=== PATIENT | male | born 1945 | race African-American/Black ===

== ENCOUNTER 2016-05-02 14:56 | Emergency (ER) | payer MEDICARE, OTHER ==
[~2016-05-02] VITALS: Ht 190.5 cm; Wt 95.3 kg
[2016-05-02] MEDS ORDERED: METFORMIN HCL500 M1 ORAL (15:09)
[2016-05-02] MEDS ORDERED: LOSARTAN-HCTZ1 EACH ORAL ×2 (15:09→15:35)
[2016-05-02 15:50] VITALS: BP 147/83
--- NOTE | 2016-05-02 18:27 | Emergency Room Report ---
History of Present Illness General Chief Complaint: General Complaint Source: Patient Present Illness HPI The patient is a 70-year-old male with a history of hypertension and DM II presenting with high blood pressure. The patient states that he has been taking his antihypertensive medication as directed. His blood pressure continues to be elevated. The patient states that he uses HCTZ/Lisinopril daily. The patient states that his according his blood pressure at the past week and states that it is usually 180/90 in the morning before taking his medication. Pt states the BP is usually 150/80 in the afternoons. The patient denies any other symptoms including chest pain or shortness of breath. Pt denies BARBA, dizziness, blurred vision, numbness/tingling, extremity swelling, abd pain, N, V Allergies: Coded Allergies: No Known Allergies (Unverified , 05/02/16) Patient History Past Medical History: see triage record Pertinent Family History: none Reviewed Nursing Documentation: PMH: Agreed, PSxH: Agreed Nursing Documentation-PMH Past Medical History: No History, Except For Hx Hypertension: Yes Hx Diabetes: Yes Review of Systems All Other Systems: negative except mentioned in HPI Physical Exam Vital Signs Date Time Temp Pulse Resp B/P Pulse Ox O2 Delivery O2 Flow Rate FiO2 05/02/16 15:04 98.6 84 16 155/82 100 Room Air Sp02 EP Interpretation: reviewed, normal General Appearance: no apparent distress, alert, GCS 15, non-toxic Head: normocephalic, atraumatic Eyes: bilateral eye PERRL, bilateral eye normal inspection ENT: hearing grossly normal, normal pharynx, no angioedema, normal voice Neck: full range of motion, supple/symm/no masses Respiratory: chest non-tender, lungs clear, normal breath sounds, no accessory muscle use, no wheezing, speaking full sentences Cardiovascular #1: regular rate, rhythm, no edema, no murmur Cardiovascular #2: 2+ carotid (R), 2+ carotid (L), 2+ radial (R), 2+ radial (L) , 2+ dorsalis pedis (R), 2+ dorsalis pedis (L) Genitourinary: normal inspection, no CVA tenderness Musculoskeletal: back normal, gait/station normal, normal range of motion, non- tender Neurologic: alert, oriented x3, responsive, motor strength/tone normal, sensory intact, normal gait, speech normal Psychiatric: judgement/insight normal, memory normal, mood/affect normal, no suicidal/homicidal ideation Skin: normal color, no rash, warm/dry, well hydrated Lymphatic: no adenopathy Medical Decision Making PA Attestation Dr. Dasilva is my supervising physician. Patient management was discussed with my supervising physician Diagnostic Impression: Primary Impression: Hypertension ER Course The patient is a 70-year-old male with a history of hypertension and DM II presenting with high blood pressure DDx: essential hypertension, htn urgency, hypotension PE: Pt is hypertensive. NAD HEENT exam unremarkable. Lungs clear to auscultation bilaterally. RRR. No murmur. Abdomen is soft and nontender. No edema The patient will be discharged home with a prescription for the same medication which he will take twice a day. Patient is advised he needs to follow up with primary doctor as soon as possible for possible change of hypertension medication. Patient will keep a blood pressure Journal. ER precautions given . Last Vital Signs Date Time Temp Pulse Resp B/P Pulse Ox O2 Delivery O2 Flow Rate FiO2 05/02/16 15:50 98.0 87 14 147/83 98 Room Air Status: improved Disposition: HOME, SELF-CARE Condition: Improved Scripts Losartan/Hydrochlorothiazide (LOSARTAN-HCTZ 100-12.5 MG TAB) 1 Each Tablet 1 TAB ORAL BID, #30 TAB Prov: AIDAN CRUZ 05/02/16 Patient Instructions: Hypertension Additional Instructions: I discussed my findings with the patient. All questions and concerns have been answered. Treatment and medication compliance have been addressed. I advised the patient that they need to follow up with PMD in 3-5 days. Return to ED if symptoms worsen, new symptoms arise, or if needed for any reason. Patient verbalized understanding of discharge instructions. Patient will keep a journal at home for blood pressure AIDAN CRUZ May 02, 2016 18:27
== END 2016-05-02 15:51 | disposition home or self-care (01) ==
LOC: EMR 15:24
DX: I10 Essential (primary) hypertension (principal); E11.9 Type 2 diabetes mellitus without complications
CPT/HCPCS: 82962; 99283

== ENCOUNTER 2016-05-13 14:13 | Inpatient (IN) | payer MEDICARE, OTHER ==
[~2016-05-13] VITALS: Ht 190.5 cm; Wt 93.4 kg
[~2016-05-13 14:13] MED LIST: LOSARTAN-HCTZ1 EACH ORAL; METFORMIN HCL500 M1 ORAL
[2016-05-13 15:20] VITALS: BP 121/71
[2016-05-13 16:02] LABS: BASOPHILS % (AUTO) 1.4 % (0.0-2.0); EOSINOPHILS % (AUTO) 0.5 % (0.0-3.0); LYMPHOCYTES % (AUTO) 24.8 % (20.0-45.0); MEAN CORPUSCULAR HEMOGLOBIN 31.7 PG (27.0-31.0); MEAN CORPUSCULAR HGB CONC 34.6 G/DL (32.0-36.0); MEAN CORPUSCULAR VOLUME 92 FL (80-99); MEAN PLATELET VOLUME 5.6 FL (6.5-10.1); MONOCYTES % (AUTO) 11.3 % (1.0-10.0); NEUTROPHILS % (AUTO) 61.9 % (45.0-75.0); PLATELET COUNT 264 K/UL (150-450); RED CELL DISTRIBUTION WIDTH 10.3 % (11.6-14.8); WHITE BLOOD COUNT 5.1 K/UL (4.8-10.8)
[2016-05-13 16:12] LABS: ALANINE AMINOTRANSFERASE 16 U/L (3-41); ALBUMIN/GLOBULIN RATIO 1.3 (1.0-2.7); ANION GAP 17 (5-15); ASPARTATE AMINO TRANSFERASE 28 U/L (5-40); CALCIUM 9.6 mg/dL (8.6-10.2); CARBON DIOXIDE 28 mEQ/L (20-30); CHLORIDE 82 mEQ/L (98-107); CREATININE 1.8 mg/dL (0.7-1.2); HEMOLYSIS 9; POTASSIUM 3.2 mEQ/L (3.4-4.9); SODIUM 127 mEQ/L (135-145); TOTAL PROTEIN 7.2 g/dL (6.6-8.7); TROPONIN I < 0.30 ng/mL (<=0.30)
[2016-05-13 16:23] LABS: CKMB 11.3 ng/mL (< 6.7)
[2016-05-13 17:19] VITALS: BP 146/74
[2016-05-13 19:11] VITALS: BP 138/74
--- NOTE | 2016-05-13 19:22 | Emergency Room Report ---
History of Present Illness General Chief Complaint: Chest Pain Source: Patient, Medical Record Present Illness HPI The patient states that he has had ongoing palpitations. He relates this to a blood pressure medication losartan. The patient states that his symptoms became so severe today he was concerned he may pass out. He states he had to hold on to a firm object in order not to fall onto the floor. He denies chest pain or abdominal pain. He denies recent illness. He denies fever or chills. He denies cough or congestion. He has no other complaints. Allergies: Coded Allergies: No Known Allergies (Unverified , 05/02/16) Patient History Past Medical History: see triage record, DM, HTN Social History: Denies: alcohol use, drug use, smoking Reviewed Nursing Documentation: PMH: Agreed, PSxH: Agreed Nursing Documentation-PMH Hx Hypertension: Yes Hx Diabetes: Yes Review of Systems All Other Systems: negative except mentioned in HPI Physical Exam Vital Signs Date Time Temp Pulse Resp B/P Pulse Ox O2 Delivery O2 Flow Rate FiO2 05/13/16 14:31 98.4 97 16 125/74 97 Room Air Sp02 EP Interpretation: reviewed, normal General Appearance: no apparent distress, alert, GCS 15, non-toxic Head: normocephalic, atraumatic Eyes: bilateral eye PERRL, bilateral eye normal inspection ENT: hearing grossly normal, normal pharynx, no angioedema, normal voice Neck: full range of motion, supple/symm/no masses Respiratory: chest non-tender, lungs clear, normal breath sounds, speaking full sentences Cardiovascular #1: regular rate, rhythm, no edema Gastrointestinal: normal bowel sounds, non tender, soft, non-distended, no guarding, no rebound Rectal: deferred Musculoskeletal: back normal, normal range of motion, non-tender Neurologic: alert, oriented x3, responsive, motor strength/tone normal, sensory intact, speech normal Psychiatric: judgement/insight normal, memory normal, mood/affect normal, no suicidal/homicidal ideation Skin: normal color, no rash, warm/dry, well hydrated Medical Decision Making Diagnostic Impression: Primary Impression: Pre-syncope Additional Impressions: Hyponatremia Hypokalemia Renal failure ER Course This patient presents with ongoing pre-syncope. He also has palpitations. He has hyponatremia, hypokalemia and renal failure. I am unsure the patient's baseline kidney function. I am concerned about pathologic arrhythmia given the pre-syncope. This patient will be admitted for further cardiac evaluation, monitoring and treatment. Labs Test 05/13/16 14:42 White Blood Count 5.1 K/UL (4.8-10.8) Red Blood Count 4.50 M/UL (4.70-6.10) Hemoglobin 14.3 G/DL (14.2-18.0) Hematocrit 41.2 % (42.0-52.0) Mean Corpuscular Volume 92 FL (80-99) Mean Corpuscular Hemoglobin 31.7 PG (27.0-31.0) Mean Corpuscular Hemoglobin Concent 34.6 G/DL (32.0-36.0) Red Cell Distribution Width 10.3 % (11.6-14.8) Platelet Count 264 K/UL (150-450) Mean Platelet Volume 5.6 FL (6.5-10.1) Neutrophils (%) (Auto) 61.9 % (45.0-75.0) Lymphocytes (%) (Auto) 24.8 % (20.0-45.0) Monocytes (%) (Auto) 11.3 % (1.0-10.0) Eosinophils (%) (Auto) 0.5 % (0.0-3.0) Basophils (%) (Auto) 1.4 % (0.0-2.0) Sodium Level 127 mEQ/L (135-145) Potassium Level 3.2 mEQ/L (3.4-4.9) Chloride Level 82 mEQ/L (98-107) Carbon Dioxide Level 28 mEQ/L (20-30) Anion Gap 17 (5-15) Blood Urea Nitrogen 27 mg/dL (7-23) Creatinine 1.8 mg/dL (0.7-1.2) Estimat Glomerular Filtration Rate mL/min (>60) Glucose Level 143 mg/dL (74-106) Calcium Level 9.6 mg/dL (8.6-10.2) Total Bilirubin 0.4 mg/dL (0.0-1.2) Aspartate Amino Transf (AST/SGOT) 28 U/L (5-40) Alanine Aminotransferase (ALT/SGPT) 16 U/L (3-41) Alkaline Phosphatase 37 U/L (40-129) Total Creatine Kinase 580 U/L (38-174) Creatine Kinase MB 11.3 ng/mL (< 6.7) Creatine Kinase MB Relative Index 1.9 Troponin I < 0.30 ng/mL (<=0.30) Total Protein 7.2 g/dL (6.6-8.7) Albumin 4.1 g/dL (3.5-5.2) Globulin 3.1 g/dL Albumin/Globulin Ratio 1.3 (1.0-2.7) EKG Diagnostic Results Rate: normal Rhythm: NSR ST Segments: no acute changes Rhythm Strip Diag. Results EP Interpretation: yes Rate: 90's Rhythm: NSR, no PVC's, no ectopy Chest X-Ray Diagnostic Results EP Interpretation: Yes Findings: no consolidation, no effusion, no pneumothorax, no acute cardiopulmonary disease Number of Views: 1 Last Vital Signs Date Time Temp Pulse Resp B/P Pulse Ox O2 Delivery O2 Flow Rate FiO2 05/13/16 17:19 68 16 146/74 97 Room Air 05/13/16 14:31 98.4 Disposition: ADMITTED INPATIENT Condition: Serious Referrals: NOT CHOSEN IPA/,REFERRING (PCP) LISA PLUMMER D.O. May 13, 2016 19:22
[2016-05-13 21:28] VITALS: BP 122/69
[2016-05-13] MEDS ORDERED: Enalaprilat 2.5mg/2ml Inj IV PRN (22:45)
[2016-05-13] MEDS ORDERED: Nitroglycerin Subl 0.4mg tab (Bottle Of 25) SL PRN (22:45)
[2016-05-13] MEDS ORDERED: Diltiazem 25mg/5ml IV PRN (22:45)
[2016-05-13] MEDS ORDERED: DuoNeb 0.5-3(2.5)mg/3ml neb HHN PRN (22:45)
[2016-05-13] MEDS ORDERED: Morphine Sulfate 2mg/ml Inj IVP PRN (22:45)
[2016-05-13] MEDS ORDERED: Miralax 17gm pkt ORAL PRN (22:45)
[2016-05-13] MEDS ORDERED: Ketorolac 30mg Inj IV PRN (22:45)
[2016-05-13 23:10] VITALS: BP 136/69
[2016-05-13] MEDS ORDERED: NS w/KCl 20mEq 1,000 ML IV SCH (23:30)
[2016-05-14] VITALS: BP 155/85
[2016-05-14 00:03] LABS: TROPONIN I < 0.30 ng/mL (<=0.30)
[2016-05-14 00:06] LABS: URIC ACID 4.9 mg/dL (3.0-7.5)
[2016-05-14 00:17] LABS: FREE T3 2.3 pg/mL (2.3-4.2)
[2016-05-14] MEDS ORDERED: ASPIR 8181 MG ORAL (02:26)
[2016-05-14 04:00] VITALS: BP 148/81
[2016-05-14] MEDS: Heparin 5000 units/ml inj SUBQ SCH ×2 (06:00→14:00)
[2016-05-14] MEDS: NovoLOG Insulin Flexpen SUBQ SCH ×2 (06:30→11:30)
[2016-05-14 07:03] LABS: EOSINOPHILS % (AUTO) 0.7 % (0.0-3.0); LYMPHOCYTES % (AUTO) 28.7 % (20.0-45.0); MEAN CORPUSCULAR HEMOGLOBIN 31.6 PG (27.0-31.0); MEAN CORPUSCULAR HGB CONC 33.9 G/DL (32.0-36.0); MEAN CORPUSCULAR VOLUME 93 FL (80-99); MEAN PLATELET VOLUME 5.3 FL (6.5-10.1); MONOCYTES % (AUTO) 13.4 % (1.0-10.0); NEUTROPHILS % (AUTO) 56.2 % (45.0-75.0); PLATELET COUNT 268 K/UL (150-450); RED BLOOD COUNT 4.58 M/UL (4.70-6.10); RED CELL DISTRIBUTION WIDTH 10.5 % (11.6-14.8)
[2016-05-14 07:13] LABS: PROTHROMBIN TIME 10.1 SEC (9.30-11.50)
[2016-05-14 07:17] LABS: CHOLESTEROL 144 mg/dL (< 200); CHOLESTEROL/HDL RATIO 2.1 (3.3-4.4); CRP QUANT < 0.3 mg/dL (< 0.5); HEMOLYSIS 9; LDL CHOLESTEROL (CALC.) 59 mg/dL (60-99)
[2016-05-14 07:27] LABS: TROPONIN I < 0.30 ng/mL (<=0.30)
[2016-05-14 07:28] LABS: KETONES,URINE NEGATIVE (NEGATIVE); LEUKOCYTE ESTERASE ,URINE NEGATIVE (NEGATIVE); NITRITE,URINE NEGATIVE (NEGATIVE); PH,URINE 6.5 (4.5-8.0); PROTEIN,URINE NEGATIVE (NEGATIVE); UROBILINOGEN,URINE NORMAL MG/DL (0.0-1.0)
[2016-05-14 07:37] LABS: APPEARANCE,URINE CLEAR
[2016-05-14 07:38] LABS: BACTERIA,URINE FEW /HPF; RBC,URINE 0-2 /HPF (0 - 0); SQUAMOUS EPITHELIAL CELL,UR FEW /LPF (NONE/OCC); WBC,URINE 0-2 /HPF (0 - 0)
[2016-05-14 08:00] VITALS: BP 145/67
[2016-05-14] MEDS ORDERED: Aspirin Baby 81mg ORAL SCH (09:00)
[2016-05-14 09:18] LABS: ANION GAP 16 (5-15); CALCIUM 9.8 mg/dL (8.6-10.2); CARBON DIOXIDE 28 mEQ/L (20-30); CHLORIDE 94 mEQ/L (98-107); CREATININE 1.5 mg/dL (0.7-1.2); HEMOLYSIS 10; POTASSIUM 3.7 mEQ/L (3.4-4.9); SODIUM 138 mEQ/L (135-145)
[2016-05-14] MEDS: metFORMIN 500mg tab ORAL SCH ×2 (11:00→12:48)
[2016-05-14 12:00] VITALS: BP 126/67
--- NOTE | 2016-05-14 14:57 | Consultation ---
History of Present Illness General Date patient seen: May 14, 2016 Chief Complaint: Chest Pain Referring physician: Dr. Caldwell Reason for Consultation: chest pain Present Illness HPI 70 year old male with hx of DM, htn presented to [facility] with CC of palpitations. He was concerned he may pass out. He states he had to hold on to a firm object in order not to fall onto the floor. He denies chest pain or abdominal pain. He denies recent illness. He denies fever or chills. He denies cough or congestion. He has no other complaints. Allergies: Coded Allergies: CIPROFLOXACIN (Verified Allergy, Unknown, 05/14/16) patient noted having headache, nausea, general weakness, hives when taking ciprofloxacin. Medication History Scheduled Aspirin* (Aspir 81*), 81 MG ORAL DAILY, (Reported) Losartan/Hydrochlorothiazide (Losartan-Hctz 100-12.5 Mg Tab), 1 TAB ORAL DAILY, (Reported) Losartan/Hydrochlorothiazide (Losartan-Hctz 100-12.5 Mg Tab), 1 TAB ORAL BID Metformin Hcl* (Metformin Hcl*), 500 MG ORAL TWICE A DAY, (Reported) Patient History Healthcare decision maker pt alert and oriented Resuscitation status Full Code Advanced Directive on File Review of Systems All Other Systems: negative except mentioned in HPI Physical Exam General Appearance: WD/WN Lines, tubes and drains: peripheral, central line HEENT: normocephalic, atraumatic Neck: non-tender, normal alignment Respiratory/Chest: chest wall non-tender, lungs clear Abdomen: normal bowel sounds, non tender Genitourinary/Rectal: normal genital exam Extremities: normal range of motion Last 24 Hour Vital Signs Date Time Temp Pulse Resp B/P Pulse Ox O2 Delivery O2 Flow Rate FiO2 05/14/16 12:00 97.7 57 17 126/67 99 Room Air 05/14/16 12:00 83 05/14/16 08:00 88 05/14/16 08:00 96.9 92 17 145/67 93 Room Air 05/14/16 07:36 78 18 Room Air 05/14/16 04:00 97.6 90 18 148/81 98 Room Air 05/14/16 03:29 90 18 Room Air 05/14/16 00:00 108 05/14/16 00:00 97.5 92 18 155/85 98 Room Air 05/13/16 23:10 90 18 136/69 100 Room Air 05/13/16 22:31 98.4 88 16 122/69 100 Room Air 05/13/16 21:28 88 16 122/69 100 Room Air 05/13/16 19:11 90 16 138/74 100 Room Air 05/13/16 17:19 68 16 146/74 97 Room Air 05/13/16 15:20 97 16 Room Air 05/13/16 15:20 16 121/71 97 Room Air Intake and Output 05/13/16 05/14/16 19:00 07:00 Intake Total 0 ml 1675 ml Output Total 2050 ml Balance 0 ml -375 ml Intake Oral 0 ml 375 ml IV Total 1300 ml Output Urine Total 2050 ml # Voids 2 Laboratory Tests Test 05/13/16 23:30 05/14/16 00:00 05/14/16 05:55 Plasma/Serum Osmolality Pending Uric Acid 4.9 mg/dL (3.0-7.5) Troponin I < 0.30 ng/mL (<=0.30) < 0.30 ng/mL (<=0.30) Free Thyroxine 1.43 ng/dL (0.86-1.85) Free Triiodothyronine 2.3 pg/mL (2.3-4.2) Cortisol Pending Urine Color Pale yellow Urine Appearance Clear Urine pH 6.5 (4.5-8.0) Urine Specific [place] 1.005 (1.005-1.035) Urine Protein Negative (NEGATIVE) Urine Glucose (UA) Negative (NEGATIVE) Urine Ketones Negative (NEGATIVE) Urine Occult Blood 1+ (NEGATIVE) H Urine Nitrite Negative (NEGATIVE) Urine Bilirubin Negative (NEGATIVE) Urine Urobilinogen Normal MG/DL (0.0-1.0) Urine Leukocyte Esterase Negative (NEGATIVE) Urine RBC 0-2 /HPF (0 - 0) H Urine WBC 0-2 /HPF (0 - 0) Urine Squamous Epithelial Cells Few /LPF (NONE/OCC) Urine Bacteria Few /HPF (NONE) Urine Osmolality Pending Urine Random Sodium 20 mmol/L White Blood Count 5.0 K/UL (4.8-10.8) Red Blood Count 4.58 M/UL (4.70-6.10) L Hemoglobin 14.5 G/DL (14.2-18.0) Hematocrit 42.6 % (42.0-52.0) Mean Corpuscular Volume 93 FL (80-99) Mean Corpuscular Hemoglobin 31.6 PG (27.0-31.0) H Mean Corpuscular Hemoglobin Concent 33.9 G/DL (32.0-36.0) Red Cell Distribution Width 10.5 % (11.6-14.8) L Platelet Count 268 K/UL (150-450) Mean Platelet Volume 5.3 FL (6.5-10.1) L Neutrophils (%) (Auto) 56.2 % (45.0-75.0) Lymphocytes (%) (Auto) 28.7 % (20.0-45.0) Monocytes (%) (Auto) 13.4 % (1.0-10.0) H Eosinophils (%) (Auto) 0.7 % (0.0-3.0) Basophils (%) (Auto) 1.0 % (0.0-2.0) Prothrombin Time 10.1 SEC (9.30-11.50) Prothromb Time International Ratio 1.0 (0.9-1.1) Activated Partial Thromboplast Time 28 SEC (23-33) Sodium Level 138 mEQ/L (135-145) # Potassium Level 3.7 mEQ/L (3.4-4.9) Chloride Level 94 mEQ/L (98-107) L Carbon Dioxide Level 28 mEQ/L (20-30) Anion Gap 16 (5-15) H Blood Urea Nitrogen 24 mg/dL (7-23) H Creatinine 1.5 mg/dL (0.7-1.2) H Estimat Glomerular Filtration Rate mL/min (>60) Glucose Level 150 mg/dL (74-106) H Calcium Level 9.8 mg/dL (8.6-10.2) C-Reactive Protein, Quantitative < 0.3 mg/dL (< 0.5) Triglycerides Level 85 mg/dL (< 150) Cholesterol Level 144 mg/dL (< 200) LDL Cholesterol 59 mg/dL (60-99) L HDL Cholesterol 68 mg/dL (> 60) H Cholesterol/HDL Ratio 2.1 (3.3-4.4) L Thyroid Stimulating Hormone (TSH) 3.230 uIU/mL (0.300-4.500) Height (Feet): 6 Height (Inches): 3.00 Weight (Pounds): 206 Medications Current Medications Medications (Trade) Dose Ordered Sig/Bernie Route PRN Reason Start Time Stop Time Status Last Admin Dose Admin Acetaminophen (Tylenol) 650 mg Q4H PRN ORAL FEVER 05/13/16 22:45 06/12/16 22:44 Albuterol/ Ipratropium (DuoNeb 0.5-3(2.5)mg/3ml) 3 ml Q4H PRN HHN Shortness of Breath 05/13/16 22:45 05/18/16 22:44 Aspirin (ASA) 162 mg DAILY ORAL 05/14/16 09:00 06/13/16 08:59 05/14/16 08:53 Dextrose (Dextrose 50%) STAT PRN IV Hypoglycemia 05/13/16 22:45 06/12/16 22:44 Diltiazem HCl (Cardizem) 10 mg Q1H PRN IV heart rate more than 120, 05/13/16 22:45 06/12/16 22:44 Enalaprilat (Vasotec) 2.5 mg Q6H PRN IV sbp more than 160 05/13/16 22:45 06/12/16 22:44 Heparin Sodium (Porcine) 5000 units 5,000 units EVERY 8 HOURS SUBQ 05/14/16 06:00 06/13/16 05:59 Insulin Aspart (NovoLOG) BEFORE MEALS AND HS SUBQ 05/14/16 06:30 06/13/16 06:29 Metformin HCl (Glucophage) 500 mg BID ORAL 05/14/16 11:00 06/13/16 10:59 Morphine Sulfate (Morphine Sulfate) 2 mg Q4H PRN IVP severe Pain (Pain Scale 7-10) 05/13/16 22:45 05/20/16 22:44 Nitroglycerin (Ntg) 0.4 mg Every 5 Minutes PRN SL Prn Chest Pain 05/13/16 22:45 06/12/16 22:44 Ondansetron HCl (Zofran) 4 mg Q6H PRN IVP Nausea & Vomiting 05/13/16 22:45 06/12/16 22:44 Pantoprazole (Protonix) 40 mg DAILY ORAL 05/14/16 09:00 06/13/16 08:59 05/14/16 08:53 Polyethylene Glycol (Miralax) 17 gm DAILYPRN PRN ORAL Constipation 05/13/16 22:45 06/12/16 22:44 Sodium Chloride (NS w/KCl 20mEq) 1,000 ml @ 50 mls/hr Q20H IV 05/13/16 23:30 06/12/16 23:29 05/14/16 01:42 Temazepam (Restoril) 15 mg HSPRN PRN ORAL Insomnia 05/13/16 22:45 05/20/16 22:44 Assessment/Plan Problem List: (1) Acute encephalopathy ICD Codes: G93.40 - Encephalopathy, unspecified SNOMED: 7343669 (2) Renal failure ICD Codes: N19 - Unspecified kidney failure SNOMED: 36461932 (3) Hypokalemia ICD Codes: E87.6 - Hypokalemia SNOMED: 66072186 (4) Hyponatremia ICD Codes: E87.1 - Hypo-osmolality and hyponatremia SNOMED: 62306152 (5) Hypertension ICD Codes: I10 - Essential (primary) hypertension SNOMED: 26235775 Assessment/Plan telemetry admission hyponatremia could be the cause of pts symptoms hold HCTZ and start on NS to correct hyponatremia. sliding scale, insulin coverage echocardigram hold metformin because of renal insufficient. LILIAM MG May 14, 2016 14:57
--- NOTE | 2016-05-14 17:10 | History & Physical ---
History and Physical History & Physicial job # [id number] Evangelist Scott MD May 14, 2016 17:10
--- NOTE | 2016-05-15 00:29 | History and Physical Report ---
DATE OF ADMISSION: 05/13/2016 CHIEF COMPLAINT: Chest pain. HISTORY OF PRESENT ILLNESS: This is a 70-year-old gentleman with a past medical history significant for hypertension and diabetes who presented to hospital complaining about the palpitations and elevated blood pressure. The patient was noted to have chest pain. He was concerned that he may pass out. He held the frame on the object to prevent himself from falling to the floor. Patient denies any chest pain or abdominal pain. Denies any fever or chills. Denies any cough or congestion. Shortly after initial evaluation in emergency, the patient was admitted to the hospital with acute encephalopathy with renal insufficiency with hyperkalemia, hyponatremia, and essential hypertension. PAST MEDICAL HISTORY/PAST SURGICAL HISTORY: As above. History of diabetes type 2 and hypertension. MEDICATIONS AT HOME: Significant for aspirin, losartan, and hydrochlorothiazide as well as metformin. ALLERGIES: Ciprofloxacin. SOCIAL HISTORY: No smoking, alcohol, or drugs. FAMILY HISTORY: Noncontributory. REVIEW OF SYSTEMS: Mostly as above. Denies any dysuria, frequency, or hematuria. Denies any hemoptysis or hematochezia. Complained of palpitations and near syncope. Denies any loss of consciousness. Denies any fall. Denies any seizure activity. PHYSICAL EXAMINATION: VITAL SIGNS: At admission, temperature 97.7, pulse of 57, respirations 17, and blood pressure 126/67. GENERAL: The patient is awake, responsive, and not in acute distress. HEENT: Pupils are reactive to light. Extraocular movements are intact. NECK: Supple. No JVD. LUNGS: Clear to rales. HEART: S1 and S2. Regular rhythm. No gallops. ABDOMEN: Soft and nontender. Positive bowel sounds. EXTREMITIES: No cyanosis, clubbing or edema. NEUROLOGIC: Cranial nerves II through XII are grossly intact. The patient moves all four extremities. LABORATORY DATA: On admission from the ER, WBC of 5.1, hemoglobin of 14, hematocrit 41, and platelets is 264,000. Sodium is 137, potassium 2.2, chloride 82, bicarbonate 28, BUN 27, creatinine 1.8, and calcium is 143. First and second troponins are essentially unremarkable. Total creatinine is 580. Total albumin is 4.1. PT of 10, INR 1.0, and PTT of 28. UA is +1 occult blood. Blood 0 to 2 RBC; otherwise all negative. The patient had duplex of the lower extremity done, which revealed patent deep venous system bilaterally. There is no evidence of thrombosis within femoral, popliteal, or tibial segment. ASSESSMENT: 1. Near-syncope with palpitation. 2. Dehydration and acute kidney injury on chronic. 3. Hyperkalemia. 4. Hyponatremia. 5. Hypertension. 6. Diabetes type 2. PLAN: Admit patient to telemetry. Will follow up with Dr. Canales, Pulmonary Critical Care. Follow up with 2D echo. However, at this time, the patient decided to sign against medical advice and leave the hospital. Continue intravenous hydration if the patient stays in the hospital and discussed with the patient with regard to his status. However, he signed AMA paper and left the hospital. Evangelist Scott M.D. DR: MEMO JOB#: [id number] CC:
--- NOTE | 2016-05-17 09:03 | Discharge Summary ---
Discharge Summary Hospital Course Date of Admission May 13, 2016 at 15:32 Date of Discharge May 14, 2016 at 14:30 Admitting Diagnosis CP, palpitations, presyncope HPI Gabino Olivares is a 70 year old male who was admitted on May 13, 2016 at 15:32 for Chest Pain,Palpitations,Presyncope Hospital Course dc summary #[id number] Discharge Condition Upon Discharge: stable Discharge Disposition Patient signed AMA Discharge Diagnoses: Discharge Instructions Discharge Instructions Special Instructions I have been assigned to complete a D/C Summary on this account. I was not involved in the patient management Thuy Mcgowan NP (Vanchtein) May 17, 2016 09:03
--- NOTE | 2016-05-17 14:06 | Cardiology Report ---
APPROVED REPORT EKG Measurement Heart [id number] Normal sinus rhythm Normal ECG
--- NOTE | 2016-05-17 15:03 | Cardiology Report ---
APPROVED REPORT EXAM: Two-dimensional and M-mode echocardiogram with Doppler and color Doppler. INDICATION Left Ventricular Function M-Mode DIMENSIONS IVSd0.7 (0.7-1.1cm)Left Atrium (MM)2.9 (1.6-4.0cm) LVDd4.2 (3.5-5.6cm)Aortic Root2.8 (2.0-3.7cm) PWd0.9 (0.7-1.1cm)Aortic Cusp Exc.2.0 (1.5-2.0cm) LVDs2.9 (2.5-4.0cm) PWs1.4 cm Technically difficult study due to poor acoustic windows. Study quality precludes accurate assessment of regional wall motion. Normal left ventricular chamber size, systolic function and wall motion. Left ventricular ejection fraction estimated to be 55 %. No evidence of ventricular hypertrophy. Anterior Echo-free space, may be due to pericardial fat or effusion. All other cardiac chamber sizes are within normal limits. Mild focal aortic valve sclerosis with adequate cusp excursion. Mildly thickened mitral valve leaflets with normal excursion. Mild mitral annulus and aortic root calcification. Pulmonic valve not well visualized. Normal tricuspid valve structure. IVC dilated at 1.7 cm with physiologic collapse. A color flow and spectral Doppler study was performed and revealed: No aortic regurgitation. Trace mitral regurgitation. Mitral diastolic velocities suggest reduced left ventricular relaxation (Grade I). Trace tricuspid regurgitation. Tricuspid systolic velocities suggests peak right ventricular systolic pressure of 47 mmHg, consistent with moderate pulmonary hypertension. No pulmonic regurgitation present.
--- NOTE | 2016-05-18 03:58 | Discharge Summary 2 SIG ---
DATE OF ADMISSION: 05/13/2016 DATE OF SIGNING AGAINST MEDICAL ADVISE: 05/14/2016 REASON FOR ADMISSION: This 70-year-old male presented to the emergency room with a chief complaint of ongoing palpitations. He reported taking losartan for blood pressure and stated that the symptoms became so severe that he was concerned he may pass out. He had to hold to a firm object in order not to fall on the floor. He denied chest pain or abdominal pain. He denies shortness of breath. He denied recent illness. He denied fever or chills. No cough and no congestion. Workup in the emergency room revealed acute hyponatremia with sodium 127, acute hypokalemia with a potassium of 3.2, acute renal failure with a BUN of 27 and creatinine of 1.8. Troponin was negative. Total CK and CK-MB were elevated. EKG revealed normal sinus rhythm. No ischemic changes. Chest x-ray revealed no acute cardiopulmonary disease. Pulse oximetry was stable on the room air. The patient was admitted to telemetry floor for further management. ADMITTING DIAGNOSES: 1. Presyncope. 2. Acute renal failure. 3. Acute hyponatremia. 4. Acute hypokalemia. 5. Diabetes. HOSPITAL STAY: The patient was admitted to telemetry floor. Another troponin was negative. The patient was in sinus rhythm on telemetry. The patient was started on IV fluids with sodium chloride. Next day, sodium up to normal 138, potassium was replaced and was within normal limits of 3.7 the next day. Renal parameters were improving, BUN down to 24 and creatinine down to 1.5. Hydrochlorothiazide was placed on hold due to the acute hyponatremia and renal failure. Metformin was stopped due to the acute renal failure. Blood sugar was managed with sliding scale insulin and was stable. Cozaar stopped, due to acute renal failure. TSH was within normal limits. The patient decided to sign against medical advice without waiting for a doctor to call back. Risk and consequences of signing against medical advice were discussed with the patient. The patient signed the form and left. DISCHARGE DIAGNOSES: 1. Near syncope with palpitation. 2. Acute renal failure, likely secondary to dehydration and diuretic use , - improved. 3. Dehydration, improved. 4. Acute hyponatremia, resolved. 5. Acute hypokalemia, resolved. 6. Diabetes mellitus. 7. Hypertension. Tyler Blanca M.D. I have been assigned to dictate discharge summary on this account and I was not involved in the patient's management. Thuy Mcgowan (Vanchtein) N.PDavid DR: ANIKA JOB#: [id number] CC: VONNIE
[2016-05-18 09:27] LABS: CORTISOL LC 15.4 ug/dL (.)
--- NOTE | 2016-05-18 12:12 | Diagnostic Imaging Report ---
APPROVED REPORT CPT Code: 29486 Present Symptoms Comments: R/O DVT BILATERAL: Imaging reveals a patent deep venous system bilaterally. There is no evidence of thrombus within the femoral, popliteal or tibial segments. The greater saphenous veins are also within normal limits. Doppler indicates normal spontaneous flow within these segments.
--- NOTE | 2016-06-09 14:34 | Diagnostic Imaging Report ---
Indication: SOB, cough Technique: One view of the chest Comparison: none Findings: Lungs and pleural spaces are clear. Heart size is normal. There are degenerative changes of the thoracic spine Impression: No acute process
== END 2016-05-14 14:30 | disposition left against medical advice (07) | DRG 309 ==
LOC: ENRESERVDT → ENRESERVTM → EMR 15:20 → 2E 15:32 → EDBEDREQ 21:50 → 2E 22:44
DX: R00.2 Palpitations (principal); N17.9 Acute kidney failure, unspecified; E86.0 Dehydration; E87.1 Hypo-osmolality and hyponatremia; R55 Syncope and collapse; E87.6 Hypokalemia; E11.9 Type 2 diabetes mellitus without complications; I10 Essential (primary) hypertension; Z88.1 Allergy status to other antibiotic agents
CPT/HCPCS: 36415; 71010; 80048; 80053; 80061; 81001; 82533; 82550; 82553; 82962; 83930; 83935; 84300; 84439; 84443; 84481; 84484; 84550; 85025; 85610; 85730; 86140; 93005; 93306; 93970; 94664; J1815; J8499

== ENCOUNTER 2019-02-21 01:17 | Inpatient (IN) | payer MEDICARE, OTHER ==
[~2019-02-21] VITALS: Ht 190.5 cm; Wt 88.9 kg
[~2019-02-21 01:17] MED LIST changes: +ASPIR 8181 MG ORAL
[2019-02-21 01:58] VITALS: BP 142/86
--- NOTE | 2019-02-21 01:58 | NUR ---
ED Nurse Note: Patient walked in from home d/t generalized weakness. Per patient, he is worried his blood sugar is dropping. BS check during assessment 133 mg/dL. Patient aao x 3 and ambulatory. Patient is unable to explain properly his symptoms and concerns. Patient placed in gown and cardiac monitor technician. No c/o pain. No acute distress noted.
[2019-02-21 02:03] LABS: BASOPHILS % (AUTO) 0.5 % (0.0-2.0); EOSINOPHILS % (AUTO) 0.8 % (0.0-3.0); HEMATOCRIT 40.9 % (42.0-52.0); HEMOGLOBIN 14.1 G/DL (14.2-18.0); LYMPHOCYTES % (AUTO) 21.3 % (20.0-45.0); MEAN CORPUSCULAR VOLUME 90 FL (80-99); MONOCYTES % (AUTO) 10.4 % (1.0-10.0); PLATELET COUNT 242 K/UL (150-450); RED BLOOD COUNT 4.52 M/UL (4.70-6.10); RED CELL DISTRIBUTION WIDTH 10.9 % (11.6-14.8); WHITE BLOOD COUNT 5.3 K/UL (4.8-10.8)
[2019-02-21 02:14] LABS: ANION GAP 6 mmol/L (5-15); BLOOD UREA NITROGEN 20 mg/dL (7-18); CARBON DIOXIDE 30 MMOL/L (21-32); CHLORIDE 94 MMOL/L (98-107); CREATININE 1.4 MG/DL (0.55-1.30); POTASSIUM 3.5 MMOL/L (3.5-5.1); SODIUM 130 MMOL/L (136-145)
--- NOTE | 2019-02-21 02:16 | Emergency Room Report ---
History of Present Illness General Chief Complaint: Generalized Weakness Source: Patient Present Illness HPI 73-year-old male history of diabetes, hypertension, hyperlipidemia, enlarged prostate presents with presyncope-like symptoms, patient states that his sugar started dropping around 10 PM, he checked his sugar and went down from 120 to 100, he states that he ate something and felt better, severity was mild, no chest pain no shortness of breath no nausea no vomiting, patient denies feeling sweaty patient states that he is presenting to the ED for a checkup to make sure things okay he is currently chest pain-free Patient only takes metformin Allergies: Coded Allergies: CIPROFLOXACIN (Verified Allergy, Unknown, 05/14/16) patient noted having headache, nausea, general weakness, hives when taking ciprofloxacin. Patient History Past Medical History: see triage record Reviewed Nursing Documentation: PMH: Agreed; PSxH: Agreed Nursing Documentation-PMH Hx Cardiac Problems: Yes Hx Hypertension: Yes Hx Diabetes: Yes Hx Gastrointestinal Problems: No Hx Neurological Problems: No Review of Systems All Other Systems: negative except mentioned in HPI Physical Exam Vital Signs Date Time Temp Pulse Resp B/P (MAP) Pulse Ox O2 Delivery O2 Flow Rate FiO2 02/21/19 01:28 98.4 104 16 130/79 (96) 98 Room Air Sp02 EP Interpretation: reviewed, normal General Appearance: well appearing, no apparent distress, alert Head: normocephalic, atraumatic Eyes: bilateral eye PERRL, bilateral eye EOMI ENT: uvula midline, moist mucus membranes Neck: supple, thyroid normal, supple/symm/no masses Respiratory: lungs clear, no respiratory distress, no retraction, no accessory muscle use Cardiovascular #1: normal peripheral pulses, regular rate, rhythm, no edema, no gallop, no murmur Gastrointestinal: non tender, soft, no guarding, no rebound Musculoskeletal: normal inspection Neurologic: alert, oriented x3 Psychiatric: mood/affect normal Skin: no rash, warm/dry Medical Decision Making Diagnostic Impression: Primary Impression: Episode of generalized weakness Additional Impression: Hyponatremia ER Course 73-year-old male presents with an episode of generalized weakness when he noticed that his sugar was downtrending, patient felt better after eating some food, patient want to come to the ED to have a checkup, he denies any chest pain shortness of breath Labs show reduced sodium, 1 38-1 30, patient denies any headaches We will admit patient, his episode of generalized weakness may be secondary to his hyponatremia Patient admitted to Dr. Charles Laboratory Tests Test 02/21/19 01:50 02/21/19 02:45 02/21/19 02:50 White Blood Count 5.3 K/UL (4.8-10.8) Red Blood Count 4.52 M/UL (4.70-6.10) L Hemoglobin 14.1 G/DL (14.2-18.0) L Hematocrit 40.9 % (42.0-52.0) L Mean Corpuscular Volume 90 FL (80-99) Mean Corpuscular Hemoglobin 31.1 PG (27.0-31.0) H Mean Corpuscular Hemoglobin Concent 34.4 G/DL (32.0-36.0) Red Cell Distribution Width 10.9 % (11.6-14.8) L Platelet Count 242 K/UL (150-450) Mean Platelet Volume 4.6 FL (6.5-10.1) L Neutrophils (%) (Auto) 67.0 % (45.0-75.0) Lymphocytes (%) (Auto) 21.3 % (20.0-45.0) Monocytes (%) (Auto) 10.4 % (1.0-10.0) H Eosinophils (%) (Auto) 0.8 % (0.0-3.0) Basophils (%) (Auto) 0.5 % (0.0-2.0) Sodium Level 130 MMOL/L (136-145) L Potassium Level 3.5 MMOL/L (3.5-5.1) Chloride Level 94 MMOL/L (98-107) L Carbon Dioxide Level 30 MMOL/L (21-32) Anion Gap 6 mmol/L (5-15) Blood Urea Nitrogen 20 mg/dL (7-18) H Creatinine 1.4 MG/DL (0.55-1.30) H Estimate Glomerular Filtration Rate mL/min (>60) Glucose Level 136 MG/DL (74-106) H Calcium Level 9.0 MG/DL (8.5-10.1) Phosphorus Level 3.7 MG/DL (2.5-4.9) Magnesium Level 1.8 MG/DL (1.8-2.4) Total Bilirubin 0.5 MG/DL (0.2-1.0) Aspartate Amino Transferase (AST) 15 U/L (15-37) Alanine Aminotransferase (ALT) 18 U/L (12-78) Alkaline Phosphatase 43 U/L (46-116) L Total Creatine Kinase 159 U/L (26-308) Creatine Kinase MB 2.6 NG/ML (0.0-3.6) Creatine Kinase MB Relative Index 1.6 Troponin I 0.000 ng/mL (0.000-0.056) Pro-B-Type Natriuretic Peptide 34 pg/mL (0-125) Total Protein 7.2 G/DL (6.4-8.2) Albumin 3.5 G/DL (3.4-5.0) Globulin 3.7 g/dL Albumin/Globulin Ratio 0.9 (1.0-2.7) L Lipase 114 U/L (73-393) Urine Color Pale yellow Urine Appearance Clear Urine pH 6.5 (4.5-8.0) Urine Specific Dawson 1.005 (1.005-1.035) Urine Protein Negative (NEGATIVE) Urine Glucose (UA) Negative (NEGATIVE) Urine Ketones Negative (NEGATIVE) Urine Blood Negative (NEGATIVE) Urine Nitrite Negative (NEGATIVE) Urine Bilirubin Negative (NEGATIVE) Urine Urobilinogen Normal MG/DL (0.0-1.0) Urine Leukocyte Esterase Negative (NEGATIVE) Lactic Acid Level 0.90 mmol/L (0.4-2.0) Microbiology Date/Time Source Procedure Growth Status 02/21/19 01:50 Nasal Nares - Final Complete 02/21/19 01:50 Nasal Nares - Final Complete EKG Diagnostic Results EKG Time: 01:36 EP Interpretation: NSR, rate 89, QTc 408, no acute ST elevations, right axis deviation Rhythm Strip Diag. Results Rhythm Strip Time: 02:15 EP Interpretation: yes Rate: 86 Rhythm: NSR, no PVC's, no ectopy Chest X-Ray Diagnostic Results Chest X-Ray Diagnostic Results : Chest X-Ray Ordered: Yes # of Views/Limited/Complete: 1 View Indication: Other - Presyncope EP Interpretation: Yes Interpretation: no consolidation, no effusion, no pneumothorax, no acute cardiopulmonary disease Impression: No acute disease Electronically Signed by: Melo Manzano MD Last Vital Signs Date Time Temp Pulse Resp B/P (MAP) Pulse Ox O2 Delivery O2 Flow Rate FiO2 02/21/19 01:58 98.4 85 17 142/86 98 Room Air Disposition: ADMITTED INPATIENT Condition: Stable Melo Manzano MD Feb 21, 2019 02:16
[2019-02-21 02:26] LABS: ALANINE AMINOTRANSFERASE 18 U/L (12-78); ALBUMIN 3.5 G/DL (3.4-5.0); ALBUMIN/GLOBULIN RATIO 0.9 (1.0-2.7); ALKALINE PHOSPHATASE 43 U/L (46-116); ASPARTATE AMINO TRANSFERASE 15 U/L (15-37); BILIRUBIN,TOTAL 0.5 MG/DL (0.2-1.0); CKMB 2.6 NG/ML (0.0-3.6); CREATINE KINASE 159 U/L (26-308); PHOSPHORUS 3.7 MG/DL (2.5-4.9)
--- NOTE | 2019-02-21 02:56 | NUR ---
ED Nurse Note: urine and lactic acid sent to lab.
--- NOTE | 2019-02-21 02:59 | NUR ---
ED Nurse Note: X-ray at bedside
[2019-02-21 03:07] LABS: APPEARANCE,URINE CLEAR; BILIRUBIN, URINE NEGATIVE (NEGATIVE); COLOR,URINE PALE YELLOW; GLUCOSE, URINE (UA) NEGATIVE (NEGATIVE); KETONES,URINE NEGATIVE (NEGATIVE); LEUKOCYTE ESTERASE ,URINE NEGATIVE (NEGATIVE); NITRITE,URINE NEGATIVE (NEGATIVE); PH,URINE 6.5 (4.5-8.0); PROTEIN,URINE NEGATIVE (NEGATIVE); UROBILINOGEN,URINE NORMAL MG/DL (0.0-1.0)
[2019-02-21 03:33] VITALS: BP 133/77
--- NOTE | 2019-02-21 03:43 | NUR ---
ED Nurse Note: ERMD at bedside
--- NOTE | 2019-02-21 04:04 | NUR ---
ED Nurse Note: Belongings list completed.
[2019-02-21] MEDS ORDERED: FLOMAX0.4 MG ORAL (04:08)
--- NOTE | 2019-02-21 04:08 | NUR ---
ED Nurse Note: Med recon completed.
--- NOTE | 2019-02-21 04:42 | NUR ---
ED Nurse Note: Report given to RILEY Ayala at telemetry.
--- NOTE | 2019-02-21 04:58 | NUR ---
ED Nurse Note: Patient transported to telemetry floor on school lunch monitor accompanied by 1 RN and aviation technician aircraft in stable condition.
--- NOTE | 2019-02-21 05:00 | NUR ---
NURSE NOTES: Received report from SINDY Meyer RN. Pt was transferred to Tele unit from ER via [place] without incident. No signs of acute distressed noted. Denies pain at this time. AOx4. Ambulatory with assist. Checked IV site; patent and flushed. No erythema, bleeding, or infiltration noted. Pt put on monitor. SR. Belongings list checked with pt and transferring RN. Bed at lowest position. Brakes on. Siderails x 2. Call light within reach. Will continue to monitor.
--- NOTE | 2019-02-21 05:01 | NUR ---
NURSE NOTES: Received admission orders from Dr. Charles. Noted and carried out.
[2019-02-21 05:30] VITALS: BP 140/80
--- NOTE | 2019-02-21 06:54 | NUR ---
NURSE NOTES: Per FARHAD Chew to order venous duplex prior to SCD application. Noted and carried out.
--- NOTE | 2019-02-21 07:10 | NUR ---
NURSE NOTES: received patient report from carolynn armando. patient is on bed awake. not in acute ditress. able to verbalize needs. on RA, tolerating well. will follow plan of care.
--- NOTE | 2019-02-21 07:18 | NUR ---
HAND-OFF: Report given to RILEY Vinson. Pt is awake and in stable condition. Plan of care endorsed.
[2019-02-21 08:00] VITALS: BP 122/72
[2019-02-21] MEDS: hydroCHLOROthiazide 12.5mg TAB ORAL SCH ×2 (08:50→09:00)
[2019-02-21] MEDS ORDERED: Losartan 50mg tab ORAL SCH (09:00)
[2019-02-21] MEDS ORDERED: Tamsulosin 0.4mg cap ORAL SCH ×3 (09:00→21:00)
[2019-02-21] MEDS ORDERED: metFORMIN 500mg tab ORAL SCH (09:00)
[2019-02-21] MEDS ORDERED: Aspirin EC 81mg tab ORAL SCH (09:00)
[2019-02-21] MEDS: NovoLOG Insulin Flexpen SUBQ SCH ×2 (11:30→16:21)
[2019-02-21 12:00] VITALS: BP 129/56
[2019-02-21 16:00] VITALS: BP 117/62
[2019-02-21] MEDS ORDERED: Sorbitol Solution UD 30ml ORAL PRN (17:08)
[2019-02-21] MEDS ORDERED: Sorbitol Solution UD 30ml ORAL SCH ×2 (17:15→21:00)
--- NOTE | 2019-02-21 18:15 | Consultation ---
DATE OF CONSULTATION: 02/21/2019 ENDOCRINOLOGY CONSULTATION CONSULTING PHYSICIAN: Jose Estevez M.D. REFERRING PHYSICIAN: Cesar Charles M.D. REASON FOR CONSULTATION: Diabetes management. HISTORY OF PRESENT ILLNESS: The patient is a 73-year-old male with history of hypertension, hyperlipidemia, and diabetes, on metformin, monotherapy, presented with presyncopal symptoms. The patient has had his sugar was dropping on 10 p.m., and it went down from 120 over 100 then presented to the emergency room for evaluation and admitted for observation and treatment. ALLERGIES: To Cipro. MEDICATIONS: Reviewed and reconciled. REVIEW OF SYSTEMS: As per HPI. PAST MEDICAL HISTORY: 1. Hypertension. 2. Diabetes. 3. BPH. 4. Hyperlipidemia. LABORATORY DATA: Sodium 130, potassium 3.5, chloride 94, bicarbonate 30, BUN 20, creatinine 1.4, glucose of 136. Lactic acid 0.9. Lipase 114. WBC 5, hemoglobin 14, hematocrit 40, platelets of 242. PHYSICAL EXAMINATION: VITAL SIGNS: Blood pressure 140/80, pulse of 80, temperature of 98.2, respiratory rate of 20. HEAD AND NECK: No JVD. HEART: Regular. LUNGS: Clear. ABDOMEN: Positive bowel sounds. EXTREMITIES: Trace edema. DIAGNOSES: 1. Questionable hypoglycemia. 2. Diabetes. 3. Hyponatremia. 4. presyncopal event. DISCUSSION: Not sure if the patient has really had a hypoglycemic event. For the time being, we will hold off on metformin and will continue to monitor blood glucose before meals and at bedtime with NovoLog sliding scale as an ordered and hyponatremia will be addressed and managed by Dr. Leung, Nephrology. I will follow the patient during his stay. Thank you, Dr. Charles, for the courtesy of this consultation. Jose Estevez M.D. DR: RILEY/NEWTON JOB#: [id number] CC: VONNIE
--- NOTE | 2019-02-21 19:40 | NUR ---
HAND-OFF: Report given to musa armando.
--- NOTE | 2019-02-21 19:41 | NUR ---
NURSE NOTES: Received pt from RILEY Vinson. Pt is awake and resting in bed in no distress. IV site intact. Bed locked in lowest position, call light within reach. Will continue with plan of care.
--- NOTE | 2019-02-21 20:33 | NUR ---
AMA: SEE AMA FORM. Belongings list signed, AMA form signed by pt. Iv site removed, cardiac box removed. Pt left with all belongings, pt said he has a ride arranged.
--- NOTE | 2019-02-22 06:00 | History and Physical Report ---
DATE OF ADMISSION: 02/21/2019 HISTORY OF PRESENT ILLNESS: The patient has a history of diabetes and hypertension, presented with episode of generalized weakness. Blood sugar dropped a little bit, ate food, was better, found to be hyponatremic, and is admitted for hyponatremia. The patient reported weak, palpitations, altered mental status, and confused. He was admitted for presyncopal episode. He that his sugar was low. Denies fever or chills. Denies shortness of breath. PAST MEDICAL HISTORY: NIDDM. PAST SURGICAL HISTORY: None. FAMILY HISTORY: Does have a history of diabetes. SOCIAL HISTORY: History of smoking. History of marijuana. No history of alcohol abuse. MEDICATIONS: in the chart. REVIEW OF SYSTEMS: HEENT: Denies headaches. PULMONARY: Denies shortness of breath. Denies cough. CARDIOVASCULAR: Denies chest pain. GASTROINTESTINAL: Denies nausea, vomiting, or diarrhea. EXTREMITIES: Denies pain. CENTRAL NERVOUS SYSTEM: Denies any speech pattern. Does have some palpitations and weakness and a little bit more confused than usual. No appreciable episodes either. No syncope. PHYSICAL EXAMINATION: VITAL SIGNS: Temperature 97.2, pulse 78, blood pressure 130/70. HEENT: PERRLA. NECK: Supple. No obvious lymphadenopathy. CHEST: Clear to auscultation. CARDIOVASCULAR: Regular rate and rhythm. No murmur or extra sounds. GASTROINTESTINAL: Soft, nontender, and nondistended. No organomegaly. EXTREMITIES: No edema. Moves all four extremities. Sensory intact to light touch. ASSESSMENT AND PLAN: Electrolyte imbalance, altered mental status, confusion, presyncope, hyponatremia. I have asked Dr. Leung, Dr. Estevez to see the patient for hypoglycemia as well as hyponatremia workup and treatment. Cesar Charles M.D. DR: IDALIA JOB#: [id number] CC:
--- NOTE | 2019-02-22 13:53 | CDS Physician Query ---
Clarification is required for compliance, coding accuracy, and to reflect severity of illness for this patient Dear Dr. Rob Leung MD Date: 02/22/2019 [place] Head/CDS Name: Luis Ring The patient has a history of diabetes and hypertension, presented with episode of generalized weakness. Blood sugar dropped a little bit, ate food, was better, found to be hyponatremic, and is admitted for hyponatremia. The patient reported weak, palpitations, altered mental status, and confused. He was admitted for presyncopal episode. He that his sugar was low. Denies fever or chills. Denies shortness of breath. "Altered Mental Status / Confusion" documented in H&P Please indicate the nature and chronicity of the condition below: [] Metabolic Encephalopathy [] Toxic Encephalopathy [] Toxic - Metabolic Encephalopathy [] Encephalopathy, Other [] Dementia with Delirium [] Hypoxic encephalopathy [] Posterior reversible encephalopathy syndrome [] Other: [] Not Applicable Present on Admission: [] Yes [] No [] Clinically Undetermined Physician signature Date Please also document in your Progress Notes and/or Discharge Summary and indicate if the condition was present on admission. MTDD
--- NOTE | 2019-02-22 18:21 | Diagnostic Imaging Report ---
Indication: Chest pain Technique: One view of the chest Comparison: none Findings: Lungs and pleural spaces are clear. Heart size is normal. Impression: No acute process
--- NOTE | 2019-02-23 13:59 | Discharge Summary ---
Discharge Summary Discharge Summary _ DATE OF ADMISSION: 02/21/2018 DATE OF DISCHARGE: 02/21/2019 Patient left AGAINST MEDICAL ADVICE REASON FOR ADMISSION: 73 years old male with past medical history of diabetes mellitus, hypertension, hyperlipidemia, enlarged prostate, presented with presyncope-like symptoms. Patient also reported that his blood sugar dropped around 10PM . He ate something and it made him feel better. He denied chest pain or shortness of breath . No nausea or vomiting . Patient reported feeling sweaty . He presented to emergency department for checkup to make sure things were okay . Patient was on metformin for blood sugar management. Upon evaluation vital signs were stable. Mild tachycardia 104 . Laboratory work-up revealed no leukocytosis , stable hemoglobin , hematocrit and platelet count. Sodium 130, stable other electrolytes . BUN 20, creatinine 1.4 . Glucose 136 Troponin negative , pro BNP 34. Urinalysis revealed no evidence of urinary tract infection. EKG revealed sinus rhythm , no acute ischemic changes. Chest x-ray revealed no acute cardiopulmonary pathology. Patient subsequently admitted for further management. CONSULTANTS: library director Dr. Estevez [facility] COURSE: Patient admitted to telemetry floor. Endocrinology and nephrology consults were requested. Digital Director seen the patient. Blood sugar was managed with metformin and sliding scale of insulin was on board as needed. Blood sugar remained stable. Home medication resumed. Patient felt better and decided to leave. The risks and consequences of signing AGAINST MEDICAL ADVICE were discussed with patient in detail. Patient verbalized understanding, nevertheless signed AMA form and left. FINAL DIAGNOSES: Hyponatremia Altered mental status Diabetes mellitus Presyncopal event Questionable hypoglycemia I have been assigned to dictate discharge summary for this account. I was not involved in the patient's management. Thuy Mcgowan NP Feb 23, 2019 13:59
--- NOTE | 2019-02-27 07:13 | CDS Physician Query ---
Clarification is required for compliance, coding accuracy, and to reflect severity of illness for this patient Dear Dr. Cesar Charles M.D. Date: 02/27/2019 Tv Technician/CDS Name: Luis Ring The patient has a history of diabetes and hypertension, presented with episode of generalized weakness. Blood sugar dropped a little bit, ate food, was better, found to be hyponatremic, and is admitted for hyponatremia. The patient reported weak, palpitations, altered mental status, and confused. He was admitted for presyncopal episode. He that his sugar was low. Denies fever or chills. Denies shortness of breath. "Altered Mental Status / Confusion" documented in H&P Please indicate the nature and chronicity of the condition below: [] Metabolic Encephalopathy [] Toxic Encephalopathy [] Toxic - Metabolic Encephalopathy [] Encephalopathy, Other [] Dementia with Delirium [] Hypoxic encephalopathy [] Posterior reversible encephalopathy syndrome [] Other: [] Not Applicable Present on Admission: [] Yes [] No [] Clinically Undetermined Physician signature Date Please also document in your Progress Notes and/or Discharge Summary and indicate if the condition was present on admission. MTDD
--- NOTE | 2019-03-01 13:39 | Cardiology Report ---
APPROVED REPORT EKG Measurement Heart [id number] <Conclusion> Normal sinus rhythm Rightward axis Borderline ECG
--- NOTE | 2019-03-09 08:49 | Coder Physician Query ---
Clarification is required for compliance, coding accuracy, and to reflect severity of illness for this patient Dear Dr. Cesar Charles M.D. Date: 02/27/2019 Cafe Aide/CDS Name: Luis Ring The patient has a history of diabetes and hypertension, presented with episode of generalized weakness. Blood sugar dropped a little bit, ate food, was better, found to be hyponatremic, and is admitted for hyponatremia. The patient reported weak, palpitations, altered mental status, and confused. He was admitted for presyncopal episode. He that his sugar was low. Denies fever or chills. Denies shortness of breath. "Altered Mental Status / Confusion" documented in H&P Please indicate the nature and chronicity of the condition below: [] Metabolic Encephalopathy [] Toxic Encephalopathy [] Toxic - Metabolic Encephalopathy [] Encephalopathy, Other [] Dementia with Delirium [] Hypoxic encephalopathy [] Posterior reversible encephalopathy syndrome [] Other: [] Not Applicable Present on Admission: [] Yes [] No [] Clinically Undetermined Physician signature Date MTDD
== END 2019-02-21 20:34 | disposition left against medical advice (07) | DRG 640 ==
LOC: EMR 01:35 → 2E 04:01 → EDBEDREQ 04:36
DX: E87.1 Hypo-osmolality and hyponatremia (principal); G93.41 Metabolic encephalopathy; R53.1 Weakness; Z88.1 Allergy status to other antibiotic agents; E11.649 Type 2 diabetes mellitus with hypoglycemia without coma; I10 Essential (primary) hypertension; Z87.891 Personal history of nicotine dependence; Z79.84 Long term (current) use of oral hypoglycemic drugs; E78.5 Hyperlipidemia, unspecified; N40.0 Benign prostatic hyperplasia without lower urinary tract symptoms
CPT/HCPCS: 36415; 71045; 80053; 81003; 82550; 82553; 82962; 83605; 83690; 83735; 83880; 84100; 84484; 85025; 86710; 93005; 93970; 96360; 99285; J1815; J7030